=== PATIENT | female | born 1985 ===

== ENCOUNTER → 2019-04-26 | Outpatient (REF) | LOC: M LAB REF 10:46 | PROVIDERS: ATTEND Obstetrics & Gynecology Reproductive Endocrinology | DX: E28.0 Estrogen excess (principal) ==

== ENCOUNTER → 2019-05-18 | Outpatient (REF) | LOC: M LAB LCGH 11:20 | PROVIDERS: ATTEND Obstetrics & Gynecology Reproductive Endocrinology | DX: E28.0 Estrogen excess (principal) ==

== ENCOUNTER → 2019-05-27 | Outpatient (REF) | LOC: M LAB REF 11:41 | PROVIDERS: ATTEND Obstetrics & Gynecology Reproductive Endocrinology | DX: E28.0 Estrogen excess (principal) ==

== ENCOUNTER → 2019-06-04 | Outpatient (REF) | LOC: M LAB REF 14:10 | PROVIDERS: ATTEND Obstetrics & Gynecology Reproductive Endocrinology | DX: E28.0 Estrogen excess (principal) ==

== ENCOUNTER → 2019-06-09 | Outpatient (REF) | LOC: M LAB REF 10:53 | PROVIDERS: ATTEND Obstetrics & Gynecology Reproductive Endocrinology | DX: E28.9 Ovarian dysfunction, unspecified (principal) ==